=== PATIENT | female | born 1985 | race Caucasian/White ===

== ENCOUNTER 2017-12-06 05:39 | Inpatient (IN) | payer OTHER, MEDICAID ==
[2017-12-06] MEDS: VASOPRESSIN 20 UNITS INJ IV
[2017-12-06] MEDS ORDERED: EPHEDrine SULFATE 50 MG/5 ML SYG (07:00)
[2017-12-06] MEDS ORDERED: CEFAZOLIN 1 GM INJ (07:00)
[2017-12-06] MEDS ORDERED: PROPOFOL 20 ML (07:31)
[2017-12-06] MEDS ORDERED: LIDOCAINE 1% (MDV) 20 ML INJ (07:31)
[2017-12-06] MEDS ORDERED: MIDAZOLAM 1 MG/ML 2 ML INJ (07:31)
[2017-12-06] MEDS ORDERED: ROCURONIUM 50 MG INJ (07:31)
[2017-12-06] MEDS ORDERED: ROPIVACAINE 0.5 % 30 ML VIAL (07:36)
[2017-12-06] MEDS ORDERED: VASOPRESSIN 20 UNITS INJ (07:45)
[2017-12-06] MEDS ORDERED: morphine SULFATE/PF (10 MG/10 ML) INJ (07:48)
[2017-12-06] MEDS ORDERED: BUPIVACAINE 0.75%/DEXT (SPINAL) 2 ML INJ (07:48)
[2017-12-06] MEDS ORDERED: FENTAnyl 50 MCG/ML VIAL (07:48)
[2017-12-06] MEDS ORDERED: ONDANSETRON 4 MG INJ (08:09)
[2017-12-06] MEDS ORDERED: DEXAMETHASONE 4 MG/ML 1 ML INJ (08:09)
[2017-12-06] MEDS ORDERED: PHENYLephrine (100 MCG/ML) 5ML SYG (08:27)
[2017-12-06] MEDS ORDERED: CEFAZOLIN 1 GM/50 ML (PMX) 50 ML IVPB (09:00)
[2017-12-06] MEDS ORDERED: ZOLPIDEM 5 MG TAB PO (10:00)
[2017-12-06] MEDS ORDERED: NALOXONE (0.4 MG/ML) INJ IV (10:00)
[2017-12-06] MEDS ORDERED: KETOROLAC 30 MG INJ IV (10:00)
[2017-12-06] MEDS ORDERED: HYDROmorphONE 0.5 MG/0.5 ML SYG IV (10:00)
[2017-12-06] MEDS ORDERED: DIPHENHYDRAMINE 50 MG INJ (10:23)
[2017-12-06] MEDS: DIPHENHYDRAMINE 50 MG INJ IV ×3 (10:29→22:20)
[2017-12-06] MEDS: HYDROmorphONE 0.5 MG/0.5 ML SYG IV (12:18)
[2017-12-06] MEDS: CEFAZOLIN 1 GM/50 ML (PMX) 50 ML IVPB ×2 (16:12→23:40)
[2017-12-07] MEDS: HYDROCODONE/APAP (5/325) TAB PO ×5 (03:53→22:21)
[2017-12-07 05:11] LABS: ADD MAN DIFF? NO
[2017-12-07 05:18] LABS: ABNORMAL IP MESSAGE 1; BASOPHILS % 0.1 % (0.0-2.0); EOSINOPHILS # 0.1 10^3/ul (0.0-0.5); EOSINOPHILS % 0.4 % (0.0-7.0); HEMATOCRIT 34.6 % (37.0-47.0); HEMOGLOBIN 11.6 g/dl (12.0-16.0); LYMPHOCYTES # 3.3 10^3/ul (0.8-2.9); MEAN CORPUSCULAR HEMOGLOBIN 29.8 pg (29.0-33.0); MEAN CORPUSCULAR HGB CONC 33.5 g/dl (32.0-37.0); MEAN CORPUSCULAR VOLUME 88.9 fl (82.0-101.0); MEAN PLATELET VOLUME 9.6 fl (7.4-10.4); MONOCYTE # 1.6 10^3/ul (0.3-0.9); MONOCYTES % 11.6 % (0.0-11.0); NEUTROPHIL # 8.7 10^3/ul (1.6-7.5); NEUTROPHILS % 63.1 % (39.0-77.0); PLATELET COUNT 293 10^3/UL (140-415); RED BLOOD COUNT 3.89 10^6/ul (4.20-5.40); RED CELL DISTRIBUTION WIDTH 12.2 % (11.5-14.5)
[2017-12-07 05:18] LABS: WHITE BLOOD COUNT 13.8 10^3/ul (4.8-10.8)
[2017-12-07 05:26] LABS: POSITIVE DIFF @See below
[2017-12-07] MEDS: CEFAZOLIN 1 GM/50 ML (PMX) 50 ML IVPB (07:41)
[2017-12-07] MEDS: ONDANSETRON 4 MG INJ IV (10:54)
[2017-12-07] MEDS: morphine 2 MG INJ IV ×2 (14:00→20:19)
[2017-12-08] MEDS: morphine 2 MG INJ IV (01:30)
[2017-12-08] MEDS: HYDROCODONE/APAP (5/325) TAB PO ×2 (06:34→13:49)
[2017-12-08] MEDS: IBUPROFEN 600 MG TAB PO (10:02)
== END 2017-12-08 19:15 | disposition home or self-care (01) | DRG 743 ==
LOC: REC 05:39 → MS1 11:25
PROVIDERS: Specialist
PROC: 0UB90ZZ Excision of Uterus, Open Approach (ICD-10-PCS; principal; 2017-12-06 07:30)
DX: D25.9 Leiomyoma of uterus, unspecified (principal); N92.0 Excessive and frequent menstruation with regular cycle
CPT/HCPCS: 84703; 85025; 86850; 86900; 86901; 86920; 88305